=== PATIENT | female | born 2000 | race Hispanic/Latino ===

== ENCOUNTER 2021-05-18 09:12 | Emergency (ER) | payer MEDICAID ==
[~2021-05-18] VITALS: Ht 157.5 cm; Wt 52.2 kg
[2021-05-18] MEDS ORDERED: ACETAMINOPHEN 500 MG TABLET ONE (09:24)
[2021-05-18] MEDS ORDERED: ONDA4TAB10 PO (11:22)
[2021-05-18 12:12] VITALS: BP 126/74
== END 2021-05-18 12:10 | disposition home or self-care (01) ==
LOC: EDH 09:12
DX: U07.1 COVID-19 (principal)
CPT/HCPCS: 87635; 87804 ×2; 99283; C9803

== ENCOUNTER 2023-04-22 10:11 | Emergency (ER) | payer MEDICAID, OTHER ==
[~2023-04-22] VITALS: Ht 154.9 cm; Wt 54.4 kg
[~2023-04-22 10:11] MED LIST: ONDA4TAB10 PO
[2023-04-22 10:21] VITALS: BP 120/66; PULSE 109; RESP 16; O2SAT 99
[2023-04-22] MEDS ORDERED: DEXAMETHASONE SOD PHOSPHATE 4 MG/ML 1ML VIAL IM ONE (11:00)
[2023-04-22] MEDS ORDERED: GUAIFENESIN/DEXTROMETHORPHAN 1 EACH TAB.SR.12H PO ONE (11:00)
[2023-04-22] MEDS ORDERED: ACETAMINOPHEN 325 MG TAB PO ONE (11:00)
[2023-04-22 11:56] LABS: RAPID GROUP A STREP negative (NEGATIVE); SARS-CoV-2, RNA, NAAT POSITIVE SARS CoV-2 (NEGATIVE)
[2023-04-22 12:06] LABS: INFLUENZA TYPE A Negative For Type A (NEGATIVE); INFLUENZA TYPE B Negative For Type B (NEGATIVE)
[2023-04-22] MEDS ORDERED: FLUT16H NASAL (12:20)
[2023-04-22] MEDS ORDERED: BROM118S48 PO (12:20)
== END 2023-04-22 13:00 | disposition home or self-care (01) ==
LOC: EDH 10:11
DX: U07.1 COVID-19 (principal); J02.9 Acute pharyngitis, unspecified; R05.9 Cough, unspecified; R09.81 Nasal congestion
CPT/HCPCS: 99284; 71045; 87635; 87880; 87804 ×2; 96372; J1100; C9803

== ENCOUNTER 2024-09-07 13:51 | Emergency (ER) | payer SELFPAY ==
[~2024-09-07] VITALS: Ht 154.9 cm; Wt 59.0 kg
[~2024-09-07 13:51] MED LIST changes: +BROM118S48 PO; +FLUT16H NASAL; +ONDA-243 PO; -ONDA4TAB10 PO
--- NOTE | 2024-09-07 14:07 | ERN ---
ED Note History of Present Illness Stated Complaint: PELVIC PAIN Chief Complaint: Pelvic Pain Time Seen by MD: 13:58 Dictation: PATIENT IS A 23-YEAR-OLD FEMALE COMING IN TODAY WITH COMPLAINTS OF BURNING URINATION AND BURNING TO THE LIPS OF HER VAGINA FOR THE LAST TWO WEEKS. SHE DENIES ANY DISCHARGE NO FEVER NO CHILLS NO NAUSEA VOMITING NO FLANK PAIN. SHE STATES SHE IS SEXUALLY ACTIVE WITHOUT PROTECTION, IS ACTIVE WITH THE SAME PARTNER. ANY HISTORY OF STDS HER PARTNER IS CURRENTLY NOT HAVING ANY COMPLAINTS. NO PRIMARY CARE DOCTOR STATES HER MOTHER GAVE HER SOME MEDICATIONS FROM [facility] HOWEVER SHE IS NOT SURE WHAT THEY WERE AND SHE SAID THEY DID NOT HELP Allergies: Coded Allergies: No Known Drug Allergies (Unverified Allergy, Unknown, 04/05/20) Home Meds Active Scripts Fluticasone Propionate (Flonase Nasal Bock) 50 Mcg/Actuation Bock, 1 SPRAY NASAL ONCE, #1 BOTTLE 0 Refills Prov:KALEN FLYNN 04/22/23 D-Methorphan Hb/P-Epd HCl/Bpm (Bromfed Dm Cough Syrup) 2 Mg-30 Mg-10 Mg/5 Ml Syrup, 10 ML PO Q6HPRN PRN for COUGH/COLD SYMPTOMS, #240 ML 0 Refills Prov:KALEN FLYNN [facility] 04/22/23 Ondansetron (Ondansetron Odt) 4 Mg Tab.rapdis, 4 MG PO QIDP PRN for VOMITING, #15 TAB 0 Refills Prov:JANKI LISA MD 05/18/21 Past Medical History Past Medical History: No Pertinent History Surgical History: None Social History: Other History: Not Applicable RN Note Reviewed/Agreed w/PFSH: Yes Review of System Dictation CONSTITUTIONAL: NEGATIVE EXCEPT FOR HPI HEAD/FACE: NEGATIVE EXCEPT FOR HPI EENT: NEGATIVE EXCEPT FOR HPI RESPIRATORY: NEGATIVE EXCEPT FOR HPI GASTROINTESTINAL/ABDOMINAL: NEGATIVE EXCEPT FOR HPI GENITOURINARY: NEGATIVE EXCEPT FOR HPI DYSURIA WITH LABIAL BURNING MUSCULOSKELETAL: NEGATIVE EXCEPT FOR HPI INTEGUMENTARY: NEGATIVE EXCEPT FOR HPI NEUROLOGICAL/PSYCH: NEGATIVE EXCEPT FOR HPI HEMATOLOGIC/LYMPHATIC: NEGATIVE EXCEPT FOR HPI ALL SYSTEMS NEGATIVE, EXCEPT NOTED ABOVE. 13 POINT REVIEW OF SYSTEMS ASSESSED AND ALL NEGATIVE EXCEPT FOR ABOVE. Initial Vital Sign VS Vital Signs Date Time Temp Pulse Resp B/P (MAP) Pulse Ox O2 Delivery O2 Flow Rate FiO2 09/07/24 13:53 99.3 74 20 115/72 100 Room Air 0 Physical Exam Dictation VITAL SIGNS REVIEWED GENERAL APPEARANCE: ALERT, ORIENTED X 3, NO ACUTE DISTRESS, WELL DEVELOPED, NOURISHED. HEAD AND FACE: NON-TRAUMATIC. EYES: PERRL, PINK CONJUNCTIVAS, EYELID NO TRAUMA, ANTERIOR CHAMBER WITH ARCUS SENILIS. EARS: PINNAS INTACT AND NO SIGNS OF TRAUMA OR ERYTHEMA EAR CANALS CLEAR AND NO DISCHARGE TM NO ERYTHEMA NOSE: NO DISCHARGE, NO BLEEDING. OROPHARYNX: MOUTH NORMAL, TONGUE PINK, PHARYNX CLEAR,NO ERYTHEMA, TONSILS NO EXUDATES, NO ABSCESSES NOTED, MUCOUS MEMBRANE MOIST NECK: SUPPLE, NON-TENDER, NO THYROMEGALY, NO MASSES, NO JVD, NO BRUITS BREAST:DEFERRED CHEST:NO TENDERNESS, NO CREPITUS, NO PARADOXICAL MOVEMENT, NO RETRACTIONS LUNGS:CLEAR, WELL-VENTILATED, SYMMETRIC, NO RALES, NO WHEEZING, NO RHONCHI, NO STRIDOR, GOOD BREATH SOUNDS BILATERALLY HEART: REGULAR RATE, REGULAR RHYTHM, NO MURMUR, NO GALLOPS VASCULAR: NO PERIPHERAL EDEMA, ABDOMEN: SOFT, POSITIVE BOWEL SOUNDS, NONDISTENDED, NO GUARDING, NONTENDER, NO REBOUND, NO MASSES NO HEPATOMEGALY, NO SPLENOMEGALY, NO ELDRIDGE'S SIGN, NO HERNIAS. RECTAL: DEFERRED GENITAL: DEFERRED NEUROLOGICAL: NORMAL SPEECH, MOTOR FUNCTION INTACT, SENSORY FUNCTION INTACT MUSCULOSKELETAL: NECK NONTENDER, FULL RANGE OF MOTION, BACK NONTENDER, FULL RANGE OF MOTION, EXTREMITIES: NONTENDER, FULL RANGE OF MOTION SKIN: COLOR PINK, DRY, NO TURGOR, NO RASH, NO LACERATIONS, NO ABRASIONS, NO CONTUSIONS. LYMPHATIC: DEFERRED Results (Laboratory/Radiology) Laboratory/Radiology Laboratory Tests Test 09/07/24 13:12 Urine Color LIGHT-YELLOW (YELLOW) Urine Appearance CLEAR (CLEAR) Urine pH 6.0 (5.0-8.0) Urine Specific [place] 1.014 (1.001-1.031) Urine Protein NEGATIVE mg/dL (NEGATIVE) Urine Glucose (UA) NEGATIVE mg/dL (NEGATIVE) Urine Ketones NEGATIVE mg/dL (NEGATIVE) Urine Occult Blood NEGATIVE (NEGATIVE) Urine Nitrate NEGATIVE (NEGATIVE) Urine Bilirubin NEGATIVE mg/dL (NEGATIVE) Urine Urobilinogen 0.2 mg/dL (0.2-1.0) Urine Leukocyte Esterase 500 Jhony/uL (NEGATIVE) H Urine RBC 2-5 /HPF (0-1) H Urine WBC 6-10 /HPF (0-1) H Urine Squamous Epithelial Cells MOD /HPF (0-2) Urine Bacteria RARE /HPF (None Seen) Urine Hyaline Casts 2-5 /LPF (0-1 /LPF) H Urine HCG, Qualitative NEGATIVE (NEGATIVE) Labs Reviewed?: Yes ED Course ED Course Orders Procedure Category Date Status Time Chlamydia & Gc Pcr SKYLAR 09/07/24 In Process 14:04 Acetaminophen 500mg PHA 09/07/24 Complete Tab (Tylenol 500mg T 14:30 Phenazopyridine Hcl PHA 09/07/24 Complete 200 Mg Tab (Pyridium 14:30 ,Urine Test LAB 09/07/24 Complete 14:04 Urinalysis Profile LAB 09/07/24 Complete 14:04 Culture Urine SKYLAR 09/07/24 In Process 14:22 Amox/Clav 875/125mg PHA 09/07/24 In Process Tab (Augmentin 875-1 15:00 Current Medications Medications (Trade) Dose Ordered Sig/Laura Route PRN Reason Start Time Stop Time Status Last Admin Dose Admin Acetaminophen (TYLenol 500MG TAB) 1,000 mg ONCE ONCE PO 09/07/24 14:30 09/07/24 14:31 DC 09/07/24 14:34 Phenazopyridine HCl (PYRIdium HCL 200 MG TAB) 200 mg ONCE ONCE PO 09/07/24 14:30 09/07/24 14:31 DC 09/07/24 14:33 Vital Signs Date Time Temp Pulse Resp B/P (MAP) Pulse Ox O2 Delivery O2 Flow Rate FiO2 09/07/24 13:53 99.3 74 20 115/72 100 Room Air 0 1440/PATIENT AWARE OF FINDINGS OF ACUTE CYSTITIS WITH HEMATURIA. A WERE LOAD HER WITH [facility] DISCHARGED HOME WITH MEDICATIONS ADDITIONALLY SHE IS AWARE THAT THERE WAS NO AT THIS TIME, AND URINE FOR GC CHLAMYDIA WAS SENT TO RULE OUT STD. ALL QUESTIONS ANSWERED Medical Decision Making MDM H MEDICAL DECISION-MAKING BASED ON URINALYSIS HCG. PATIENT TREATED FOR ACUTE CYSTITIS WITH HEMATURIA [facility] LOADED PATIENT IS SENT HOME WITH THE ANTIBIOTICS TOLD SHE WILL RECEIVE A CALL CONFIDENTIALLY DX & DISP Disposition: Discharge Departure Impression: Primary Impression: Acute cystitis with hematuria Additional Impression: Dysuria Condition: Stable Scripts Phenazopyridine HCl (Pyridium) 200 Mg Tab 200 MG PO TIDPC for 3 Days, #9 TAB TAKE WITH FOOD TO PREVENT STOMACH UPSET. Prov: TETO FOX NP 09/07/24 Amoxicillin/Potassium Clav (Amox Tr-K Clv 875-125 mg Tab) 875 Mg-125 Mg Tablet 1 EACH PO BID for 5 Days, #10 TAB 0 Refills Prov: TETO FOX NP 09/07/24 Additional Instructions: FOLLOW-UP WITH PRIMARY CARE PROVIDER IN 1 TO 2 DAYS. TAKE MEDICATIONS DIRECTED HERE IN THE EMERGENCY ROOM. OKAY TO CONTINUE HOME MEDICATIONS UNLESS OTHERWISE DISCUSSED DURING YOUR VISIT IN THE EMERGENCY ROOM TODAY. RETURN TO YOUR NEAREST EMERGENCY ROOM IF SYMPTOMS WORSEN OR IF THERE IS NO IMPROVEMENT. CALL 911 IF YOU NEED IMMEDIATE ASSISTANCE. TAKE TYLENOL OR MOTRIN [id number] NEEDED AND IF NO CONTRAINDICATIONS ARE PRESENT. INCREASE OR AL HYDRATION. A WOUND CULTURE OR URINE CULTURE WAS ORDERED HERE IN THE EMERGENCY ROOM DEPARTMENT PLEASE FOLLOW-UP WITH PRIMARY CARE PROVIDER AND ADVISE THEM TO GET REPEAT PORTS FROM OUR FACILITY. IF YOU HAD ANY VALERIE WRAP/SPLINTS THAT WERE APPLIED HERE, PLEASE DO NOT REMOVE THEM UNTIL YOU SEE YOUR PRIMARY CARE OR SPECIALTY. TAKE ANTIBIOTICS DIRECTED UNTIL GONE. , INCREASE YOUR WATER INTAKE. , REMEMBER THE PYRIDIUM WILL TURN YOUR URINE ORANGE RED. SEE YOUR PRIMARY CARE DOCTOR FOR FOLLOW UP Referrals: NONE (PCP) Time of Disposition: 14:42 I have reviewed the case, and I agree with, Diagnosis and Plan TETO FOX NP Sep 07, 2024 14:07
[2024-09-07 14:15] LABS: APPEARANCE,URINE CLEAR (CLEAR); BILIRUBIN,URINE NEGATIVE (NEGATIVE); COLOR,URINE LIGHT-YELLOW (YELLOW); GLUCOSE, URINE (UA) NEGATIVE (NEGATIVE); KETONES,URINE NEGATIVE (NEGATIVE); LEUKOCYTE ESTERASE ,URINE 500 Leu/uL (NEGATIVE); NITRATE,URINE NEGATIVE (NEGATIVE); OCCULT BLOOD,URINE NEGATIVE (NEGATIVE); PROTEIN,URINE NEGATIVE (NEGATIVE); UROBILINOGEN,URINE 0.2 mg/dL (0.2-1.0)
[2024-09-07 14:22] LABS: ADD UA MICROSCOPIC YES
[2024-09-07 14:23] LABS: HCG,QUALITATIVE URINE NEGATIVE (NEGATIVE)
[2024-09-07 14:27] LABS: BACTERIA,URINE RARE /HPF (None Seen); MUCUS,URINE RARE LPF (None Seen); SQUAMOUS EPITHELIAL CELL,UR MOD /HPF (0-2)
[2024-09-07] MEDS: PHENAZOpyridine HCL 200 MG TAB 200 MG TABLET PO ONE (14:33)
[2024-09-07] MEDS: acetaMINOPHEN 500 MG TABLET PO ONE (14:34)
[2024-09-07] MEDS ORDERED: AMOX1TAB16 PO (14:45)
[2024-09-07] MEDS ORDERED: PHEN-847 PO (14:45)
[2024-09-07] MEDS: AMOX/CLAV 875/125MG TAB PO ONE (15:01)
[2024-09-07 15:13] VITALS: BP 110/73; PULSE 70; RESP 20; TEMP 99; O2SAT 99
== END 2024-09-07 15:19 | disposition home or self-care (01) ==
LOC: EDH 13:51
DX: N30.01 Acute cystitis with hematuria (principal); R30.0 Dysuria; Z79.899 Other long term (current) drug therapy
CPT/HCPCS: 81001; 81025; 87086; 87491; 87591; 99284